=== PATIENT | female | born 1975 | race Caucasian/White ===

== ENCOUNTER 2018-08-13 23:40 | Emergency (ER) | payer MEDICAID ==
[~2018-08-13] VITALS: Ht 160 cm; Wt 65.8 kg
[~2018-08-13 23:40] MED LIST: CETI-102 PO
--- NOTE | 2018-08-14 00:05 | NUR ---
PT PRESENTED TO THE ER WITH A C/O FEVER. PT HAD CHEMO ON TUESDAY FOR BREAST CA. PT HAS HAD A BILATERAL MASTECTOMY. PT HAS A LEFT UPPER CHEST PORT THAT WILL BE ACCESSED. PT IS ON THE MONITOR AND CONTINUOUS PULSE OX.
[2018-08-14 00:50] LABS: BASOPHILS % (AUTO) 0.3 % (0.0-2.0); EOSINOPHILS % (AUTO) 0.6 % (0.0-6.0); HEMATOCRIT 29 % (33-45); HEMOGLOBIN 9.6 g/dL (11.5-14.8); LYMPHOCYTES # (AUTO) 1.2 /CMM (0.8-4.8); LYMPHOCYTES % (AUTO) 14.2 % (20.0-44.0); MEAN CORPUSCULAR HGB CONC 33 g/dl (31.0-36.0); MEAN CORPUSCULAR VOLUME 88 fL (82-100); MONOCYTES # (AUTO) 0.3 /CMM (0.1-1.30); MONOCYTES % (AUTO) 3.1 % (2.0-12.0); NEUTROPHILS # (AUTO) 7.1 /CMM (1.8-8.9); NEUTROPHILS % (AUTO) 81.8 % (43.0-81.0); PLATELET COUNT (AUTO) 154 /CMM (150-450); RED BLOOD CELL COUNT(AUTO) 3.32 MIL/uL (4.0-5.2); WHITE BLOOD COUNT (AUTO) 8.6 K/uL (4.3-11.0)
--- NOTE | 2018-08-14 00:55 | NUR ---
CUMMINGS NEEDLE removed. Catheter intact and site benign. Pressure and 4x4 applied to site. No bleeding noted. Patient discharged to home in stable condition. Written and verbal after care instructions given. Patient verbalizes understanding of instruction. PT'S ORAL TEMP 98.6F.
[2018-08-14 00:56] LABS: APPEARANCE,URINE CLEAR (CLEAR); BILIRUBIN,URINE NEGATIVE (NEGATIVE); BLOOD, URINE NEGATIVE Ery/uL (NEGATIVE); COLOR,URINE YELLOW (YELLOW); KETONES,URINE NEGATIVE (NEGATIVE); LEUKOCYTE ESTERASE ,URINE NEGATIVE (NEGATIVE); NITRITE, URINE NEGATIVE (NEGATIVE); PH,URINE 6.5 (5.0-8.0); PROTEIN,URINE NEGATIVE (NEGATIVE); UGLUCOSE NEGATIVE (NEGATIVE); UROBILINOGEN,URINE 0.2 EU/dL (0.2)
[2018-08-14] MEDS ORDERED: ONDANSETRON HCL/PF 4 MG/2 ML VIAL IV ONE (01:00)
[2018-08-14 01:01] LABS: CALCIUM, SERUM 8.6 mg/dL (8.5-10.1); CARBON DIOXIDE 25 mmol/L (21-32); CHLORIDE 103 mmol/L (98-107); CREATININE 0.7 mg/dL (0.6-1.3); GLUCOSE 99 mg/dL (74-106); SODIUM SERUM 139 mmol/L (136-145); UREA NITROGEN, BLOOD 6 mg/dL (7-18)
--- NOTE | 2018-08-14 01:01 | NUR ---
PT REFUSED ZOFRAN.
[2018-08-14 01:13] LABS: ALANINE AMINOTRANSFERASE 21 U/L (12-78); ALBUMIN 3.6 g/dL (3.4-5.0); ALKALINE PHOSPHATASE 176 U/L (46-116); ASPARTATE AMINOTRANSFERASE 14 U/L (15-37); B-TYPE NATRIURETIC PEPTIDE 196 PG/ML (0-125); BILIRUBIN,DIRECT 0.1 mg/dL (0.0-0.2); BILIRUBIN,TOTAL 0.2 mg/dL (0.2-1.0); TOTAL PROTEIN, SERUM 7.2 g/dL (6.4-8.2)
[2018-08-14] MEDS ORDERED: ONDANSETRON HCL/PF 4 MG/2 ML VIAL ONE (01:27)
--- NOTE | 2018-08-14 01:50 | NUR ---
Patient discharged to home in stable condition. Written and verbal after care instructions given. Patient verbalizes understanding of instruction. PT AMBULATED OUT WITH A STEADY GAIT. PT'S FAMILY IS DRIVING PT HOME. COPY OF ALL LABS AND IMAGING FINDINGS GIVEN.
[2018-08-14 02:07] VITALS: BP 120/75
== END 2018-08-14 02:08 | disposition home or self-care (01) ==
LOC: ER 23:41
DX: R50.9 Fever, unspecified (principal); R06.02 Shortness of breath; Z85.3 Personal history of malignant neoplasm of breast; Z41.1 Encounter for cosmetic surgery
CPT/HCPCS: 36415; 71045; 80048; 80076; 81001; 83605; 83880; 84484; 85025; 85730; 87040 ×2; 87086; 87804 ×2; 93005; 99284; A4606; J2405; 81000-TC; 87400

== ENCOUNTER 2019-01-28 20:46 | Emergency (ER) | payer MEDICAID ==
[~2019-01-28] VITALS: Ht 160 cm; Wt 68.0 kg
--- NOTE | 2019-01-28 21:04 | NUR ---
PT BIBS C/O R BREAST REDNESS, PAIN, TENDERNESS, AND HOT TO TOUCH X10 DAYS. PT REPORTS TAKING AMIXICILLIN TID X3DAYS. ON RADIATION THERAPY FOR BILAT BREAST CANCER, [facility]
[2019-01-28] MEDS ORDERED: CLINDAMYCIN HCL 150 MG CAPSULE PO ONE ×2 (21:25→21:30)
--- NOTE | 2019-01-28 22:50 | NUR ---
ULTRASOUND AT BEDSIDE
--- NOTE | 2019-01-29 00:05 | NUR ---
CALLED [facility] FOR ULTRASOUND READ.
--- NOTE | 2019-01-29 00:41 | NUR ---
DPatient discharged to home in stable condition. Written and verbal after care instructions given. Patient verbalizes understanding of instruction.
[2019-01-29 00:44] VITALS: BP 136/91
== END 2019-01-29 00:44 | disposition home or self-care (01) ==
LOC: ER 20:49
DX: N61.0 Mastitis without abscess (principal); Z85.3 Personal history of malignant neoplasm of breast; Z90.13 Acquired absence of bilateral breasts and nipples; Z98.890 Other specified postprocedural states
CPT/HCPCS: 76642-TC

== ENCOUNTER 2019-01-29 23:17 | Emergency (ER) | payer MEDICAID ==
[~2019-01-29] VITALS: Ht 160 cm; Wt 68.0 kg
--- NOTE | 2019-01-29 23:20 | NUR ---
PT BIBSELF C/O WEAKNESS/FEVER X 2 HOURS. PT WAS SEEN HERE YESTERDAY DX WITH BREAST CELLULITIS. PT AXO4. RESPIRATIONS EVEN AND UNLABORED. PT WARM TO THE TOUCH. PT PUT ON THE ACID REGENERATOR AND PULSE OX. PENDING EVAL FROM ER .
--- NOTE | 2019-01-29 23:42 | NUR ---
20G LAC IV STARTED, BLOOD SENT WITH ORNAMENTAL BRONZE WORKER.
--- NOTE | 2019-01-29 23:45 | NUR ---
XRAY AT BEDSIDE.
[2019-01-30] MEDS ORDERED: PIPERACILLIN /TAZOBACTAM 3.375 G in IV D5W 50 ML IV ONE ×2
[2019-01-30] MEDS ORDERED: ACETAMINOPHEN 650 MG/SUPP.RECT RC ONE
[2019-01-30] MEDS ORDERED: ACETAMINOPHEN ES 500 MG TABLET PO ONE
[2019-01-30] MEDS ORDERED: VANCOMYCIN 1 GM VIAL ONE
[2019-01-30] MEDS ORDERED: VANCOMYCIN 1 GM in IV D5W 250 ML IV ONE ×2
[2019-01-30] MEDS ORDERED: IV NS 0.9% 1,000 ML BAG IV ONE
[2019-01-30] MEDS ORDERED: PIPERACILLIN /TAZOBACTAM 3.375 G VIAL IV ONE
[2019-01-30] MEDS ORDERED: ACETAMINOPHEN ES 500 MG TABLET ONE
[2019-01-30] MEDS ORDERED: IBUPROFEN 600 MG TABLET PO ONE ×2 (00:01)
[2019-01-30 00:03] LABS: BASOPHILS % (AUTO) 0.4 % (0.0-2.0); HEMATOCRIT 33 % (33-45); HEMOGLOBIN 11.2 g/dL (11.5-14.8); LYMPHOCYTES # (AUTO) 0.6 /CMM (0.8-4.8); LYMPHOCYTES % (AUTO) 7.1 % (20.0-44.0); MEAN CORPUSCULAR HGB CONC 34 g/dl (31.0-36.0); MEAN CORPUSCULAR VOLUME 88 fL (82-100); MONOCYTES # (AUTO) 0.5 /CMM (0.1-1.30); MONOCYTES % (AUTO) 5.2 % (2.0-12.0); NEUTROPHILS # (AUTO) 7.7 /CMM (1.8-8.9); NEUTROPHILS % (AUTO) 85.3 % (43.0-81.0); PLATELET COUNT (AUTO) 213 /CMM (150-450); RED BLOOD CELL COUNT(AUTO) 3.79 MIL/uL (4.0-5.2)
[2019-01-30 00:11] LABS: CALCIUM, SERUM 8.9 mg/dL (8.5-10.1); POTASSIUM 4.1 mmol/L (3.5-5.1)
[2019-01-30 00:17] LABS: ALBUMIN 3.8 g/dL (3.4-5.0); BILIRUBIN,DIRECT 0.1 mg/dL (0.0-0.2); BILIRUBIN,TOTAL 0.3 mg/dL (0.2-1.0); TOTAL PROTEIN, SERUM 7.6 g/dL (6.4-8.2)
--- NOTE | 2019-01-30 01:42 | NUR ---
[facility] BED [id number], CALL [phone]. AUTH FOR TRANSPORT IS [id number].
--- NOTE | 2019-01-30 01:52 | NUR ---
FER CALLED ETA [phone]. TRIP #[id number]
--- NOTE | 2019-01-30 02:00 | NUR ---
REPORT GIVEN TO IDRIS HERNANDEZ AT [facility].
--- NOTE | 2019-01-30 03:09 | NUR ---
REPORT GIVEN TO NIKKO ALVARADO FOR TRANSPORT TO [facility].
[2019-01-30 03:10] VITALS: BP 109/70
== END 2019-01-30 03:10 | disposition short-term general hospital (02) ==
LOC: ER 23:19
DX: N61.0 Mastitis without abscess (principal); R00.0 Tachycardia, unspecified; Z90.13 Acquired absence of bilateral breasts and nipples; Z98.890 Other specified postprocedural states
CPT/HCPCS: 36415; 71045; 80048; 80076; 83605; 85025; 85730; 87040 ×2; 87081; 93005; 96365; 96368; 99285; J2543 ×2; J3370; J7060

== ENCOUNTER 2019-08-23 13:41 | Emergency (ER) | payer MEDICAID ==
[~2019-08-23] VITALS: Ht 160 cm; Wt 72.6 kg
[~2019-08-23 13:41] MED LIST changes: -CETI-102 PO; +CETI-110 PO
[2019-08-23 13:51] VITALS: BP 74/18
== END 2019-08-23 14:56 | disposition home or self-care (01) ==
LOC: ER 13:41
DX: J06.9 Acute upper respiratory infection, unspecified (principal); Z98.890 Other specified postprocedural states; Z85.3 Personal history of malignant neoplasm of breast

== ENCOUNTER 2019-12-02 19:21 | Emergency (ER) | payer MEDICAID ==
[~2019-12-02] VITALS: Ht 160 cm; Wt 70.3 kg
--- NOTE | 2019-12-02 19:29 | NUR ---
PT BIBSELF C/O YELLOW CLEAR FLUID COMING OUT OF BILATERAL BREAST X1 WEEK. PT REQUESTING TO HAVE A ULTRASOUND. VSS. NO PAIN NOTED. RR EVEN AND UNLABORED. PT PALCED IN GOWN, ON MONITOR AND PULSE OX. VSS. AWAITING MD FOR EVAL AND ORDERS.
--- NOTE | 2019-12-02 20:28 | NUR ---
ULTRASOUND AT BEDSIDE
--- NOTE | 2019-12-02 21:24 | NUR ---
Patient discharged to home in stable condition. Written and verbal after care instructions given. Patient verbalizes understanding of instruction.Pt ambulatory with a steady gait
[2019-12-02 21:25] VITALS: BP 137/80
== END 2019-12-02 21:26 | disposition home or self-care (01) ==
LOC: ER 19:25
DX: N64.52 Nipple discharge (principal); Z85.3 Personal history of malignant neoplasm of breast; Z90.13 Acquired absence of bilateral breasts and nipples; Z98.890 Other specified postprocedural states; Z79.899 Other long term (current) drug therapy
CPT/HCPCS: 76642-RT-TC